=== PATIENT | female | born 2005 | race African-American/Black ===

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

== ENCOUNTER → 2025-01-22 11:08 | Outpatient (RCR) | payer MEDICAID, SELFPAY | END | disposition home or self-care (01) | LOC: HO.PTCHIC 07-19 08:39 | PROVIDERS: PCP Nurse Practitioner Pediatrics; Visit Provider Nurse Practitioner Pediatrics | DX: M25.369 Other instability, unspecified knee (principal) | CPT/HCPCS: 97110; 97112; 97140; 97161; 97530 ==

== ENCOUNTER 2025-04-14 09:33 | Outpatient (REF) | payer MEDICAID, SELFPAY ==
--- OUTSIDE RECORDS SUMMARY | 2025-04-14 10:10 | XMS_ITS | Encounter Summary ---
Author Organization [employer] Address [address] [facility] [address] [place] [address] Care Team Providers Care Pen Maker Name Role Phone Marie Justice MD Primary Care Provider [phone] Encounter Details Date Type Department Care Team (Latest Contact Info) Description 04/14/2025 Travel Social History Tobacco Use Types Packs/Day Years Used Date Smoking Tobacco: Never Passive Smoke Exposure: Never Smokeless Tobacco: Never Depression Answer Date Recorded Patient Health Questionnaire-9 Score 1 05/02/2024 Patient Health Questionnaire-9 Score 1 05/02/2024 Last PHQ-9: Questionnaire Data Not on file 0 05/02/2024 Housing Stability Answer Date Recorded What is your housing situation today? I have will ferrara 02/20/[address] you li ve. Do you have problems with any of the following? None of the above 02/20/2024 Food Insecurity Answer Date Recorded Within the past 12 months, y ou worried that your food would run out before you got money to buy more: Never True 02/20/2024 Within the past 12 months,th e food you bought just didn't last and you didn't have enough money to get more: Never True Transportation Answer Date Recorded In the past 12 months, has l ack of transportation kept you from medical appts, meetings, work or from getting things needed for daily living? No 02/20/2024 Utilities Answer Date Recorded In the past 12 months, has t he electric, gas, oil or water company threatened to shut off services in your home? No 02/20/2024 Depression Answer Date Recorded Patient Health Questionnaire-2 Score 1 05/02/2024 Comments Unknown Sex and Gender Information Value Date Recorded Sex Assigned at Female 07/24/2022 10:34 AM EDT Legal Sex Female 10:34 AM EDT Gender Identity Female 07/24/2022 10:34 AM EDT Sexual Orientation Straight 07/24/2022 10 :34 AM EDT documented as of this encounter Plan of Treatment Not on file documented as of this encounter Visit Diagnoses Not on filedocumented in this encounter Additional Health Concerns Assessment Noted Time PHQ-9 Depression Total Score: 1 05/02/20 10:42 AM EDT documented as of this encounter Care Teams Pen Maker Relationship Specialty Start Date End Date Marie Justice MD [address] [place] [id number] PCP - General Internal Medicine 03/17/24 documented as of this encounter
[2025-04-14 14:10] LABS: MANUAL DIFF FLAG NO
[2025-04-14 14:13] LABS: Hematocrit 35.7 % (37.0-47.0); Hemoglobin 11.5 g/dl (12.0-16.0); Imm Gran Abs Auto 0.01 X10*3/uL (0.00-0.03); Imm Gran Pct Auto 0.2 % (0.0-0.4); Lymphocytes Absolute Auto 1.5 X10*3/uL (1.2-4.9); Mean Corpuscular HGB Conc 32.2 g/dl (31.0-35.0); Mean Corpuscular Hemoglobin 29.8 pg (27.0-33.0); Mean Corpuscular Volume 92.5 fL (80.0-98.0); NRBC Abs Auto 0.020 X10*3/uL (0.0-0.012); NRBC Pct Auto 0.5 /100WBC (0.0-0.2); Platelet Count 191 X10*3/uL (160-400); Red Blood Count 3.86 X10*6/uL (4.20-5.50); White Blood Count 4.1 X10*3/uL (4.8-10.8)
[2025-04-14 15:02] LABS: Iron 56 mcg/dL (30-160); Percent Iron Saturation 17 % (15-50); Total Iron Binding Capacity 323 mcg/dL (228-428); Unsaturated Iron Binding 267 ug/dL
[2025-04-14 15:06] LABS: Ferritin 8 ng/mL (10-122)
[2025-04-14 23:00] LABS: CT PCR DETECTED (Not Detect.); NG PCR NOT DETECTED (Not Detect.)
[2025-04-15 08:06] LABS: HIV Num 1 0.06 S/CO (0.00-0.99); ~HepC Num1 0.13 S/CO (0.00-0.79); ~Hepatitis C Antibody Nonreactive (Nonreactive)
== END 2025-04-14 09:34 | disposition home or self-care (01) ==
LOC: HO.CHCLDS 09:33
PROVIDERS: Visit Provider Pediatrics
DX: Z11.3 Encounter for screening for infections with a predominantly sexual mode of transmission (principal); Z11.4 Encounter for screening for human immunodeficiency virus [HIV]; D64.9 Anemia, unspecified
CPT/HCPCS: 36415; 82728; 83540; 84443; 85025; 86803; 87389; 87491; 87591

== ENCOUNTER 2025-04-21 16:45 | Emergency (ER) | payer MEDICAID, SELFPAY ==
--- NOTE | 2025-04-21 17:04 | ED.ABDPAIN ---
HPI - Abdominal Pain General Chief Complaint: Nausea/Vomiting/Diarrhea Stated Complaint: Vomiting Time Seen by Provider: 04/21/25 19:36 Source: patient Limitations: no limitations History of Present Illness ED Provider: Sheree Wong PA-C HPI narrative: 19-year-old otherwise healthy female presents with the acute onset nausea vomiting. Denies abdominal pain, diarrhea, fever, sick contacts with similar symptoms. Patient does admit to regular marijuana use. Related Data Previous Rx's ?Medication ?Instructions ?Recorded clindamycin HCl 300 mg capsule 300 mg PO QID 10 days #40 caps 03/17/22 ketorolac 10 mg tablet 10 mg PO Q6H 3 days #12 tabs 03/17/22 ofloxacin 0.3 % ear drops 10 drp otic (ears) DAILY 7 days 03/17/22 #10 mL ondansetron 4 mg disintegrating 4 mg PO Q6-8H PRN nausea and 05/09/24 tablet vomiting #10 tabs Allergies Allergy/AdvReac Type Severity Reaction Status Date / Time No Known Allergies (No Known Allergy Verified 04/21/25 17:07 Allergies*) Review of Systems Review of Systems Yes all other systems are reviewed and are negative Constitutional: Denies fatigue and Denies fever(s) Cardiovascular: Denies chest pain and Denies dyspnea Respiratory: Denies dyspnea Gastrointestinal: Denies abdominal pain, Denies diarrhea, Reports nausea and Reports vomiting Endocrine: Denies fatigue PMFSH Past Medical History Attestation statement: The following information was validated with the patient. Medical History No pertinent past medical history Social History Social History Alcohol intake: current Alcohol intake frequency: a few times a week Patient Tobacco Use Status: Never used Tobacco Substance Use Type: Marijuana Advance Directives: No Advance Directives Information Provided: Yes Do you have a plan to hurt others: No Plan Physical Exam ED Vital Signs: Vital Signs - 24 hr 04/21/25 17:06 04/21/25 20:00 04/21/25 20:54 Temperature 98 F 98.1 F 98.1 F Pulse Rate 76 69 69 Respiratory Rate 20 16 16 Blood Pressure 138/76 119/52 L 119/52 L Pulse Oximetry 99 100 100 Oxygen Delivery Method Room Air Room Air BMI result Body Mass Index 28.0 Const Other: Alert Orientation/consciousness: patient oriented x3 Resp Effort & Inspection: normal respiratory effort Cardio Other: Normal peripheral perfusion Skin Other: warm dry no rash Neuro General: patient oriented x3, gait normal, no focal motor deficits and CN's II-XI intact bilaterally Psych Other: Cooperative Course Course Course Narrative: This is an RME performed by Hai Topete, [employer]: Additional HPI, ROS, PE not included below will be deferred to primary provider. Patient is a 19-year-old female who presents emergency department for evaluation nausea and vomiting over past 3 hours. abrupt onset. Denies ABD pain, symptoms. Reports history of similar symptoms on the past, uncertain of the cause, occurred 1 year ago. Denies recreational drug usage including marijuana, denes ETOH, Denies concern for Plan: Serum labs, urinalysis, hCG, Zofran Medical Decision Making Medical Decision Making MDM Narrative: 19-year-old otherwise healthy female presents with the acute onset nausea vomiting. Denies abdominal pain, diarrhea, fever, sick contacts with similar symptoms. Patient does admit to regular marijuana use No chronic issues History: Per patient I have considered the following differential diagnoses: Cannabinoid induced hyperemesis, viral syndrome, acute intra-abdominal pathology Plan: Patient has no abdominal pain just active GI symptoms, she has no sick contacts with similar symptoms to suggest viral syndrome. This is likely cannabinoid induced hyperemesis, we will give fluid and droperidol I have independently reviewed the following tests: Labs: Slight leukocytosis, not anemic, potassium subtly low at 3.1, no additional electrolyte abnormalities, giving 40 mEq of p.o. potassium Lab Data 04/21/25 17:19 04/21/25 17:19 Labs: Lab Results 04/21/25 Range/Units 17:19 WBC 14.5 H (4.8-10.8) X10*3/uL RBC 3.99 L (4.20-5.50) X10*6/uL Hgb 12.0 (12.0-16.0) g/dl Hct 34.7 L (37.0-47.0) % MCV 87.0 (80.0-98.0) fL MCH 30.1 (27.0-33.0) pg MCHC 34.6 (31.0-35.0) g/dl RDW 11.8 (11.0-16.0) % Plt Count 228 (160-400) X10*3/uL MPV 10.6 (9.4-12.3) fL Immature Gran % (Auto) 0.4 (0.0-0.4) % Neut % (Auto) 87.0 H (45-73) % Lymph % (Auto) 7.0 L (20-40) % Haines % (Auto) 5.4 (2-11) % Eos % (Auto) 0.0 (0-4) % Baso % (Auto) 0.2 (0-2) % Lymph # (Auto) 1.0 L (1.2-4.9) X10*3/uL Haines # (Auto) 0.8 (0.1-1.2) X10*3/uL Eos # (Auto) 0.0 (0.0-0.4) X10*3/uL Baso # (Auto) 0.0 (0.0-0.2) X10*3/uL Abs Immat Gran (auto) 0.06 H (0.00-0.03) X10*3/uL Absolute Neuts (auto) 12.6 H (2.0-8.3) x10*3/uL Absolute Nucleated RBC 0.000 (0.0-0.012) X10*3/uL Nucleated RBC % (auto) 0.0 (0.0-0.2) /100WBC Sodium 142 (135-145) mmol/L Potassium 3.1 L (3.3-5.1) mmol/L Chloride 111 H (96-108) mmol/L Carbon Dioxide 17 L (22-29) mmol/L Anion Gap 17 (12-20) BUN 10 (9-16) mg/dL Creatinine 0.79 (0.5-1.4) mg/dL Estim Creat Clear Calc 116.9 Estimated GFR > 60 Random Glucose 132 H (60-115) mg/dL Calcium 9.4 (8.4-10.2) mg/dL Magnesium 1.7 (1.6-2.6) mg/dL Total Bilirubin 1.5 H (0.0-1.0) mg/dL AST 27 (5-31) U/L ALT 14 (0-31) U/L Alkaline Phosphatase 74 (39-117) U/L Total Protein 8.2 H (6.5-8.0) g/dL Albumin 4.7 (3.5-5.0) g/dL Lipase 12 (8-78) U/L Influenza Type A (PCR) NEGATIVE (Negative) Influenza Type B (PCR) NEGATIVE (Negative) RSV RNA Qual (PCR) NEGATIVE (Negative) SARS-CoV-2 RNA (RT-PCR) NEGATIVE (Negative) Medications Administered Discontinued Medications Generic Name Dose Route Start Last Admin Trade Name Freq PRN Reason Stop Dose Admin Droperidol 2.5 mg 04/21/25 19:56 04/21/25 20:00 Droperidol 5 Mg/2 Ml Vial IVPUSH 04/21/25 19:57 2.5 mg ONCE ONE Administration Sodium Chloride 1,000 mls @ 999 mls/hr 04/21/25 19:45 04/21/25 20:59 Ns IV 04/21/25 20:45 Infused .Q1H1M RIRI Infusion Ondansetron HCl 4 mg 04/21/25 17:19 04/21/25 17:54 Ondansetron Odt 4 Mg Tab.Rapdis TRANSLINGU 04/21/25 17:20 4 mg ONCE ONE Administration Discharge Plan Discharge Clinical Impression: Cannabinoid hyperemesis syndrome, Acute hypokalemia Patient Disposition: Home, Self-Care Instructions: Cannabis Use Disorder (ED), Potassium Content of Foods List (ED), Hypokalemia (ED) Additional Instructions: You were treated for suspect cannabinoid induced hyperemesis, smoking regular or large quantities of marijuana can trigger intractable nausea vomiting. See home care instructions. If you develop symptoms again, take a hot shower; this treatment has been medically proven to be quite effective. Your potassium was subtly low, you were given potassium replacement. Your potassium was on the low end of normal, this was secondary to your vomiting. Follow up with your primary care provider as needed. Prescriptions: No Action ketorolac 10 mg tablet 10 mg PO Q6H 3 Days Qty: 12 0RF clindamycin HCl 300 mg capsule 300 mg PO QID 10 Days Qty: 40 0RF ofloxacin 0.3 % drops 10 drp otic (ears) DAILY 7 Days Qty: 10 0RF ondansetron 4 mg tablet,disintegrating 4 mg PO Q6-8H PRN (Reason: nausea and vomiting) Qty: 10 0RF Print Language: Croatian
[2025-04-21 17:06] VITALS: BP 138/76; PULSE 76; RESP 20; TEMP 36.6; O2SAT 99; BMI 28.0
[2025-04-21 17:28] LABS: MANUAL DIFF FLAG NO
[2025-04-21 17:29] LABS: Hematocrit 34.7 % (37.0-47.0); Hemoglobin 12.0 g/dl (12.0-16.0); Imm Gran Abs Auto 0.06 X10*3/uL (0.00-0.03); Imm Gran Pct Auto 0.4 % (0.0-0.4); Lymphocytes Absolute Auto 1.0 X10*3/uL (1.2-4.9); Mean Corpuscular HGB Conc 34.6 g/dl (31.0-35.0); Mean Corpuscular Hemoglobin 30.1 pg (27.0-33.0); Mean Corpuscular Volume 87.0 fL (80.0-98.0); NRBC Abs Auto 0.000 X10*3/uL (0.0-0.012); NRBC Pct Auto 0.0 /100WBC (0.0-0.2); Platelet Count 228 X10*3/uL (160-400); Red Blood Count 3.99 X10*6/uL (4.20-5.50); White Blood Count 14.5 X10*3/uL (4.8-10.8)
[2025-04-21 17:45] LABS: Alanine Aminotransferase 14 U/L (0-31); Albumin Level 4.7 g/dL (3.5-5.0); Alkaline Phosphatase 74 U/L (39-117); Anion Gap 17 (12-20); Aspartate Amino Transferase 27 U/L (5-31); Blood Urea Nitrogen 10 mg/dL (9-16); Calcium 9.4 mg/dL (8.4-10.2); Carbon Dioxide 17 mmol/L (22-29); Chloride 111 mmol/L (96-108); Creatinine Clr Calc Pharmacy 116.9; Estimated Glomerular Filt Rate > 60; Lipase 12 U/L (8-78); Magnesium 1.7 mg/dL (1.6-2.6); Potassium 3.1 mmol/L (3.3-5.1); Sodium 142 mmol/L (135-145); Total Protein 8.2 g/dL (6.5-8.0)
[2025-04-21 18:15] LABS: Resp Syncy Virus RNA Qual PCR NEGATIVE (Negative); SARS COV2 PCR INHOUSE NEGATIVE (Negative)
[2025-04-21 20:00] VITALS: BP 119/52; PULSE 69; RESP 16; TEMP 36.7; O2SAT 100
--- NOTE | 2025-04-21 20:00 | PC.NURSE ---
Patient medicated per provider orders. Strong marijuana odor noted by this RN & MAUREEN Wong. Patient stated I don't smoke a lot of weed, but I do smoke it .
[2025-04-21 20:54] VITALS: BP 119/52; PULSE 69; RESP 16; TEMP 36.7; O2SAT 100
--- NOTE | 2025-04-21 22:45 | PC.NURSE ---
Given jessica andrew & ice. Reports feeling better and is requesting to be discharged. MAUREEN Wong aware. No nausea/vomiting since medicating with droperidol & IV fluids. Care ongoing by this RN until discharge.
[2025-04-21] MEDS: Potassium Chloride ER 20 MEQ TAB.ER.PRT 40 MEQ PO (22:58)
[2025-04-21 23:02] VITALS: BP 119/52; PULSE 69; RESP 16; TEMP 36.7; O2SAT 100
== END 2025-04-21 23:02 | disposition home or self-care (01) ==
PROVIDERS: Nurse Practitioner Family; Emergency Provider Emergency Medicine; PCP Pediatrics
DX: R11.2 Nausea with vomiting, unspecified (principal); F12.90 Cannabis use, unspecified, uncomplicated; E87.6 Hypokalemia; Z03.818 Encounter for observation for suspected exposure to other biological agents ruled out
CPT/HCPCS: 36415; 80053; 83690; 83735; 85025; 87637; 96361; 96374; 99284; J1790

== ENCOUNTER 2025-08-04 14:27 | Emergency (ER) | payer MEDICAID, SELFPAY ==
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
[2025-08-04 14:32] VITALS: BP 141/82; PULSE 95; RESP 22; TEMP 36.6; O2SAT 100; BMI 29.1
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
--- NOTE | 2025-08-04 14:40 | ECG_ITS ---
Test Reason : CP Blood Pressure : */* mmHG Vent. Rate : 66 BPM Atrial Rate : 66 BPM P-R Int : 112 ms QRS Dur : 76 ms QT Int : 390 ms P-R-T Axes : 58 68 40 degrees QTcB Int : 408 ms Normal sinus rhythm Normal ECG No previous ECGs available Referred By: Dixie Ricks Electronically Signed By: DESIRAE DORAN MD
[2025-08-04 15:11] LABS: MANUAL DIFF FLAG NO
[2025-08-04 15:15] LABS: Hematocrit 38.7 % (37.0-47.0); Hemoglobin 13.0 g/dl (12.0-16.0); Imm Gran Abs Auto 0.05 X10*3/uL (0.00-0.03); Imm Gran Pct Auto 0.4 % (0.0-0.4); Lymphocytes Absolute Auto 1.3 X10*3/uL (1.2-4.9); Mean Corpuscular HGB Conc 33.6 g/dl (31.0-35.0); Mean Corpuscular Hemoglobin 29.3 pg (27.0-33.0); Mean Corpuscular Volume 87.4 fL (80.0-98.0); NRBC Abs Auto 0.000 X10*3/uL (0.0-0.012); NRBC Pct Auto 0.0 /100WBC (0.0-0.2); Platelet Count 288 X10*3/uL (160-400); Red Blood Count 4.43 X10*6/uL (4.20-5.50); White Blood Count 14.1 X10*3/uL (4.8-10.8)
[2025-08-04 15:41] LABS: Alanine Aminotransferase 31 U/L (0-31); Albumin Level 5.0 g/dL (3.5-5.0); Alkaline Phosphatase 82 U/L (39-117); Anion Gap 17 (12-20); Aspartate Amino Transferase 52 U/L (5-31); Blood Urea Nitrogen 20 mg/dL (9-16); Calcium 9.8 mg/dL (8.4-10.2); Carbon Dioxide 21 mmol/L (22-29); Chloride 106 mmol/L (96-108); Creatinine Clr Calc Pharmacy 113.5; Estimated Glomerular Filt Rate > 60; Potassium 3.5 mmol/L (3.3-5.1); Sodium 140 mmol/L (135-145); Total Protein 8.9 g/dL (6.5-8.0)
[2025-08-04] MEDS: Sucralfate Oral Suspension 1 GM/10 ML ORAL.SUSP PO (16:38)
[2025-08-04] MEDS: Lactated Ringers 1,000 ML 999 ML IV (16:38)
[2025-08-04] MEDS: Magnesium Hydrox/Alum Hydrox 30 ML ORAL.SUSP PO (16:39)
[2025-08-04 16:53] LABS: IDNOW Serial# 08D9AD1C; Strep A Nucleic Acid Negative (Negative)
--- OUTSIDE RECORDS SUMMARY | 2025-08-04 17:00 | XMS_ITS | Clinical Summary ---
Author Organization [employer] Address [address] [facility] [address] [place] [address] Care Team Providers Care Piping Engineer Name Role Phone Marie Justice MD Primary Care Provider [phone] Allergies No known active allergies Medications ketoconazole (NIZOral) 2 % shampoo WASH HAIR WEEKLY DIRECTED 120 mL 11 5 Active hydrocortisone 2.5 % creamIndication s:Rash APPLY TOPICALLY TWICE A DAY 56.7 g 11 5 Active Encounters Date Type Department Care Team Description 06/04/2025 Telephone [facility] [address] [place] [address] Marie Justice MD from Last 3 Months Immunizations Immunization Administration Dates Next Due DTaP / Hep B / IPV 11/28/2006 DTaP, Unspecified 12/31/2006,04/02/2006,01/30/20 06 HPV 9-Valent 06/21/2020,06/18/2019 Hep A, Unspecified 10/28/2007 Hep A, ped/adol, 2 dose 04/17/2007 Hep B, Adolescent or Pediatric 06/21/2020,2005 HiB, unspecified 12/31/2006,04/02/2006, 6 Hib (PRP-T) 2005 IPV 01/06/2010, 7,04/02/2006,01/29 Influenza injectable quadriv alent preservative free 07/06/2022,08/04/2020,06/15/2017 MMR 12/31/2006,10/01/2006 Meningococcal MCV4P ACYW-135 06/18/2019 Meningococcal Polysaccharide A,C,Y,W-135 TT Conjugate 07/06/2022 Rotavirus Monovalent 12/18/2006 Rotavirus Pentavalent 04/02/2006,01/29/2006 Tdap 06/18/2019 Varicella 01/06/2010,10/01/2006 Social History Tobacco Use Types Packs/Day Years Used Date Smoking Tobacco: Never Passive Smoke Exposure: Never Smokeless Tobacco: Never Tobacco Cessation:Counseling Given: Not Answered Depression Answer Date Recorded Patient Health Questionnaire-9 [...] Orientation Straight 07/24/2022 10 :34 AM EDT Last Filed Vital Signs Vital Sign Reading Time Taken Comments Blood Pressure 130/76 04/14/2025 9:12 AM EDT Pulse 70 04/14/2025 9:12 AM EDT Temperature 36.1 C (97 F) 04/14/2025 9:12 AM EDT Respiratory Rate 16 04/14/2025 9:12 AM EDT Oxygen Saturation 98% 06/11/2024 9:50 AM EDT Inhaled Oxygen Concentration - - Weight 76.2 kg (168 lb) 04/14/2025 9:12 AM EDT Height 165.1 cm (5' 5 ) 04/14/2025 9:12 AM EDT Body Mass Index 27.96 04/14/2025 9:12 AM EDT Plan of Treatment Health Maintenance Due Date Last Done Comments Fluoride Varnish 05/31/2006 Alcohol/Substance Use Screening 2017 Family Planning (PISQ) 2020 Meningococcal B Vaccine (1 of 2 - Standard) 2021 SDOH Screening 02/19/2025 02/20/2024 Depression Screening 05/02/2025 05/02/2024, 05/02/20 24 COVID-19 Vaccine ( - season) 2025 Influenza Vaccine (#1) 2025 , 08/04/2020, 06/15/2017 Chlamydia and Gonorrhea Screening 04/14/2026 04/14/2025, 06/11/2024, 05/02/2024 Disability Screening 04/14/2026 04/14/2025 Tobacco Screening 04/14/2026 04/14/2025 DTaP/Tdap/Td Vaccines (5 - Td or Tdap) 06/18/2029 06/18/2019, 12/31/2006, 11/28/2006, Additional history exists Zoster Vaccines (1 of 2) 2055 RSV Patients and Patients Aged 60 years or older (1 - 1-dose 75+ series) 2080 Rotavirus Vaccines Aged Out 12/18/2006, 0 04/02/2006, 01/29/2006 No longer eligible based on patient's age to complete this topic HIB Vaccines Completed 12/31/2006, 03/24, 01/29/2006, Additional history exists MMR Vaccines Completed 12/31/2006, 10/01/2006 Hepatitis A Vaccines Completed 10/28/2007, 04/17/20 07 IPV Vaccines Completed 01/06/2010, 05/2007, 11/28/2006, Additional history exists Varicella Vaccines Completed 01/06/2010, 10/01/2006 HPV Vaccines Completed 06/21/2020, 06/18/2019 Hepatitis B Vaccines Completed 06/21/2020, 11/28/2006, 04/02/2006 Meningococcal Vaccine Completed 07/06/2022, 019 HIV Screening Completed 04/14/2025, 05/02/2024 Hepatitis C Screening Completed 04/14/2025, 024 Pneumococcal Vaccine: Pediatrics (0 to 5 Years) and At-Risk Patients (6 to 49) Years Aged Out No longer eligible based on patient's age to complete this topic RSV under 20 months Aged Out No longe r eligible based on patient's age to complete this topic Procedures Procedure Name Priority Date/Time Associated Diagnosis Comments HEPATITIS C AB W/REFL TO HCV RNA, QN, PCR Routine 04/14/2025 9:34 AM EDT Anemia, unspecified type Routine screening for STI (sexually transmitted infection) HIV 1/2 ANTIGEN/ANTIBODY, FOURTH GENERATION W/RFL Routine 04/14/2025 9:34 AM EDT Anemia, unspecified type Routine screening for STI (sexually transmitted infection) CHLAMYDIA/N. GONORRHOEAE RNA, TMA, UROGENITAL Routine 04/14/2025 9:25 AM EDT Anemia, unspecified type Routine screening for STI (sexually transmitted infection) from Last 3 Months or Most Recently Relevant to Health Maintenance Results * Hepatitis C Antibody with Reflex to HCV, RNA, Quantitative, Real-Time PCR (04/14/2025 9:34 AM EDT) Hepatitis C Antibody Nonreactive Nonreactive [facility] Comment:Antibodies to HCV no t detected; does not exclude early acuteHCV infection. Blood Venous blood specimen / Unknown 04/14/2025 9:34 AM EDT 04/14/2025 2:03 PM EDT Marie Justice MD LAB BLOOD ORDERABLES Final Re sult Performing Organization Address [facility]/ZIP Co de Phone Number [facility] [address] [place] [address] [phone] * HIV-1/2 Antigen and Antibodies, Fourth Generation, with Reflexes (04/14/2025 9:34 AM EDT) HIV AB/AG Nonreactive Nonreactive [facility] Comment:HIV-1 p24 Ag and/or HIV-1/HIV-2 Ab not detected.A test result that is nonreactive does not exclude thepossibility of exposure to or infection with HIV-1 and/orHIV-2. Nonreactive results in this assay for individualswith prior exposure to HIV-1 and/or HIV-2 may be due toantigen and antibody levels that are below the limit ofdetection of this assay.The [employer] HIV Ag/Ab Combo assay result andsupplemental assay results should be interpreted inconjunction with the patient's clinical presentation,history and other laboratory results. If the results areinconsistent with clinical evidence, additional testing issuggested to confirm the result. Blood Venous blood specimen / Unknown 04/14/2025 9:34 AM EDT 04/14/2025 2:03 PM EDT Marie Justice MD LAB BLOOD ORDERABLES Final Re sult Performing Organization Address City/[facility]/ZIP Co de Phone Number [facility] [address] [place] [address] [phone] * (ABNORMAL) Chlamydia/N. Gonorrhoeae RNA, TMA, Vaginal (04/14/2025 9:25 AM EDT) CT PCR DETECTED(A) Not Detect. [facility] Comment:Detected results may be observed after successful antibiotictreatment due to target nucleic acids from residualnon-viable chlamydia. As with many diagnostic tests, resultsfrom the Xpert CT/NG assay should be interpreted inconjunction with other laboratory and clinical dataavailable to the clinician.Xpert CT/NG performance has not been evaluated in patientsless than 14 years of age. The assay should not be used forthe evaluationof suspected sexual abuse or for other medico- legalindications. Additional testing is recommended inany circumstance when false positive or false negativeresults could lead to adverse medical, social orpsychological consequences.These results must be reported by the ordering clinician orclinical facility to [facility] required by state law. NG PCR NOT DETECTED Not Detect. [facility] Comment:A not detected test result does not exclude the possibilityof infection because test results can be affected byimproper specimen collection, concurrent antibiotic therapy,or the number of organisms in the specimen which may bebelow the sensitivity of the test. As with many diagnostictests, results from the Xpert CT/NG assay should beinterpreted in conjunction with other laboratory andclinical data available to the clinician.Xpert CT/NG performance has not been evaluated in patientsless than 14 years of age. The assay should not be used forthe evaluationof suspected sexual abuse or for other medico-legalindications. Additional testing is recommended in anycircumstance when false positive or false negative resultscould lead to adverse medical, social or psychologicalconsequences. Swab (Vaginal Swab) 04/14/2025 9:25 AM EDT 04/14/2025 6:01 PM EDT Marie Justice MD LAB MICROBIOLOGY - GENERAL OR DERABLES Final Result [facility] [address] [place] [address] [phone] from Last 3 Months or Most Recently Relevant to Health Maintenance Insurance [facility] [employer] Care Teams Piping Engineer Relationship Specialty Start Date End Date Marie Justice MD [address] [place] [phone] PCP - General Internal Medicine 03/17/24
[2025-08-04 17:10] LABS: Resp Syncy Virus RNA Qual PCR NEGATIVE (Negative); SARS COV2 PCR INHOUSE NEGATIVE (Negative)
[2025-08-04 18:28] VITALS: BP 134/64; PULSE 61; RESP 17; TEMP 37.4; O2SAT 100
[2025-08-04 20:53] VITALS: BP 134/64; PULSE 61; RESP 17; TEMP 37.4; O2SAT 100
== END 2025-08-04 20:53 | disposition home or self-care (01) ==
PROVIDERS: Registered Nurse Emergency; Emergency Provider Emergency Medicine
DX: R11.10 Vomiting, unspecified (principal); Z04.1 Encounter for examination and observation following transport accident; V49.49XA Driver injured in collision with other motor vehicles in traffic accident, initial encounter; Y93.9 Activity, unspecified; Y92.410 Unspecified street and highway as the place of occurrence of the external cause; Z03.818 Encounter for observation for suspected exposure to other biological agents ruled out; R07.9 Chest pain, unspecified; R07.89 Other chest pain
CPT/HCPCS: 36415; 70450; 71101; 80053; 84702; 85025; 87637; 87651; 93005; 96361; 96374; 96375; 99284; J1200; J1885; J2405; J2765; J7120

== ENCOUNTER → 2025-08-04 14:40 | Outpatient (BNV) | payer MEDICAID, SELFPAY | PROVIDERS: Emergency Provider Emergency Medicine; Visit Provider Radiology Diagnostic Radiology | DX: R11.10 Vomiting, unspecified (principal); R07.89 Other chest pain; Z04.3 Encounter for examination and observation following other accident | CPT/HCPCS: 70450; 71101 ==

== ENCOUNTER → 2025-08-04 14:40 | Outpatient (BNV) | payer MEDICAID, SELFPAY | PROVIDERS: Emergency Provider Emergency Medicine; Visit Provider Internal Medicine Cardiovascular Disease | DX: R07.9 Chest pain, unspecified (principal) | CPT/HCPCS: 93010 ==

== ENCOUNTER 2025-08-07 11:44 | Outpatient (REF) | payer MEDICAID, SELFPAY ==
[2025-08-07 16:39] LABS: Bacterial Vaginosis PCR POSITIVE (Negative); Candida Group PCR NOT DETECTED (Not Detect); Candida glab krusei PCR NOT DETECTED (Not Detect); Trichomonas vaginalis PCR NOT DETECTED (Not Detect)
[2025-08-07 16:54] LABS: CT PCR NOT DETECTED (Not Detect.); NG PCR NOT DETECTED (Not Detect.)
== END 2025-08-07 11:45 | disposition home or self-care (01) ==
LOC: HO.CHCLNP 11:44
PROVIDERS: Visit Provider Pediatrics
DX: Z20.2 Contact with and (suspected) exposure to infections with a predominantly sexual mode of transmission (principal)
CPT/HCPCS: 81515; 87491; 87591